=== PATIENT | female | born 1980 | race African-American/Black ===

== ENCOUNTER 2016-08-10 12:27 | Emergency (ER) | payer OTHER ==
[~2016-08-10] VITALS: Ht 152.4 cm; Wt 69.5 kg
[2016-08-10 13:24] LABS: POINT-OF-CARE METER ID UU13113800
[2016-08-10 13:52] LABS: HEMATOCRIT 37.6 % (36.0-46.0); MCH 32.7 PG (29.0-34.0); MCV 95.9 FL (83-99); MEAN PLAT.VOLUME 10.6 uM^3 (9.5-12.4); PLATELET COUNT 145 K/uL (156-360); RBC DIS.WIDTH-CV 12.9 % (11.8-14.6); RBC DIS.WIDTH-SD 43.3 % (39-53); RED BLOOD COUNT 3.92 M/uL (3.80-5.20); WHITE BLOOD COUNT 4.9 K/uL (4.1-10.2)
[2016-08-10 13:57] LABS: ADD MIUA? YES; BILIRUBIN NEGATIVE; BLOOD TRACE; COLOR DK YELLOW ((YELLOW)); GLUCOSE (STRIP) NEGATIVE; KETONES TRACE; LEUKOCYTES NEGATIVE; NITRITE NEGATIVE; PROTEIN (STRIP) 100; SPECIFIC GRAVITY 1.028 (1.000-1.030); UROBILINOGEN 0.2 MG/DL (0.2-1.0)
[2016-08-10 13:57] LABS: CHLORIDE 103 mEq/L (99-109); POTASSIUM 4.1 mEq/L (3.7-5.4); SODIUM 139 mEq/L (136-147)
[2016-08-10 13:58] LABS: MAGNESIUM 1.6 mg/dL (1.3-2.7)
[2016-08-10 13:59] LABS: GLUCOSE 95 mg/dL (70-99)
[2016-08-10 14:01] LABS: ANION GAP 12 MEQ/L (2-14)
[2016-08-10 14:02] LABS: SERUM ETHYL ALCOHOL < 10 mg/dL
[2016-08-10 14:03] LABS: GFR ESTIMATE (CALCULATED) > 59 mL/min/
[2016-08-10 14:05] LABS: UREA NITROGEN (BUN) 7 mg/dL (9-23)
[2016-08-10 14:06] LABS: SALICYLATE < 5.0 MG/DL (15-30)
[2016-08-10 14:16] LABS: QUANTITATIVE HCG < 4.0 MIU/ML
[2016-08-10 14:26] LABS: AMPHETAMINE NEGATIVE (500 ng/mL); BARBITURATES NEGATIVE (200 ng/mL); BENZODIAZEPINES PRESUMPTIVE POSITIVE (150 ng/mL); COCAINE PRESUMPTIVE POSITIVE (150 ng/mL); INTERNAL CONTROLS VALID? YES; METHADONE NEGATIVE (200 ng/mL); METHAMPHETAMINE NEGATIVE (500 ng/mL); OPIATES (MORPHINE) NEGATIVE (100 ng/mL); OXYCODONE NEGATIVE (100 ng/mL); PHENCYCLIDINE PRESUMPTIVE POSITIVE (25 ng/mL); PROPOXYPHENE NEGATIVE (300 ng/mL); THC CANNABINOIDS PRESUMPTIVE POSITIVE (50 ng/mL); TRICYCLIC ANTIDEPRESSANTS NEGATIVE (300 ng/mL)
[2016-08-10 14:27] LABS: ADD MEDTOX COMMENT Y
[2016-08-10 14:43] LABS: BACTERIA RARE; CASTS NONE SEEN /LPF; CRYSTALS NONE SEEN; EPITHELIAL CELLS 1+; MUCUS NONE SEEN; RED BLOOD CELLS RARE /HPF (0-5); UCUL ADDED? NO; WHITE BLOOD CELLS NONE SEEN /HPF (0-5)
[2016-08-10 15:10] LABS: BENZODIAZEPINES QUANT VALUE 0 NG/ML
[2016-08-10 15:11] LABS: BENZODIAZEPINES, URINE SCREEN Negative (200 ng/mL)
[2016-08-10 15:47] VITALS: BP 135/80
== END 2016-08-10 15:49 | disposition home or self-care (01) ==
LOC: EME 12:27
PROVIDERS: Physician Assistant
DX: F19.10 Other psychoactive substance abuse, uncomplicated (principal); R56.9 Unspecified convulsions; F17.200 Nicotine dependence, unspecified, uncomplicated
CPT/HCPCS: 70450; 71020; 80048; 81003; 82948; 83735; 84484; 84702; 84999; 85027; 93005; 99281; 99284; G0480; J3411; J3475; J7030